=== PATIENT | female | born 1990 | race Caucasian/White ===

== ENCOUNTER 2023-10-17 12:18 | Emergency (ER) | payer BC ==
[~2023-10-17] VITALS: Ht 167.6 cm; Wt 86.2 kg
[2023-10-17 12:18] VITALS: BP_SYST 141; PULSE 79; RESP 18; TEMP 97.9; O2SAT 99
[2023-10-17] MEDS ORDERED: IBUP-1969 PO (13:40)
[2023-10-17] MEDS ORDERED: HYDR-3917 PO (13:40)
[2023-10-17 14:24] VITALS: BP_SYST 141; PULSE 79; RESP 18; TEMP 97.9; O2SAT 99
== END 2023-10-17 14:28 | disposition home or self-care (01) ==
LOC: SED 12:18
DX: S86.812A Strain of other muscle(s) and tendon(s) at lower leg level, left leg, initial encounter (principal); X58.XXXA Exposure to other specified factors, initial encounter; Y93.89 Activity, other specified; Y92.89 Other specified places as the place of occurrence of the external cause; Y99.8 Other external cause status
CPT/HCPCS: 73590; 81025; 93971; 99284